=== PATIENT | female | born 1935 | race Caucasian/White ===

== ENCOUNTER 2017-09-02 22:40 | Emergency (ER) | payer MEDICARE ==
[2015-01-18 12:57] VITALS: BMI 30.7
[~2017-09-02 22:40] MED LIST: ALENDRONATE SOD70 MG PO; AMOXICILLIN500 M1 PO; BAYER CHEWABLE81 MG PO; BRILINTA90 MG PO; COUMADIN5 MG PO; EFFIENT10 MG PO; FLOVENT DI50 MCG/DIS INH; FLUTICASONE PRO16 GM NASAL; GLUCOPHAGE500 MG PO; HYDROCODONE-APA1 TAB PO; LASIX40 MG PO; LIPITOR20 MG PO; NITROQUICK0.4 MG SL; PLAQUENIL200 MG PO; PLAVIX75 MG PO; PREDNISONE5 MG PO; PRINZIDE 20-251 TA1 PO; PROTONIX40 MG PO; SINGULAIR10 MG PO; SYNTHROID100 MCG PO; ZYRTEC10 MG PO
[2017-09-02 23:42] LABS: APPEARANCE CLOUDY (CLEAR); COLOR YELLOW (YELLOW); GLUCOSE 50 mg/dL (NEGATIVE); KETONE SMALL mg/dL (NEGATIVE); NITRITE NEGATIVE (NEGATIVE); PROTEIN TRACE mg/dL (NEGATIVE)
[2017-09-02 23:43] LABS: BILIRUBIN NEGATIVE (NEGATIVE); UROBILINOGEN NORMAL (NORMAL)
[2017-09-02 23:46] LABS: BACTERIA MANY /hpf (NONE SEEN); EPITHELIAL CELLS 0-5 /hpf (0-5); RED CELLS - URINE 0-5 /hpf (0-5)
[2017-09-02 23:55] LABS: HEMATOCRIT 41.2 % (36.0-48.0); HEMOGLOBIN 13.4 g/dL (12-16); MCH 30.4 pg (26.0-34.0); MCHC 32.5 g/dL (31.0-37.0); MCV 93.4 fL (80.0-100.0); MEAN PLATELET VOLUME 9.2 fL (7.4-10.4); NEUTROPHILS 84.1 % (40-80); PLATELET COUNT 179 10x3/uL (130-400); RBC 4.41 10x6/uL (4.00-5.40); RDW 13.1 % (11.5-14.5); WBC 12.2 10x3/uL (4.8-10.8)
[2017-09-03 00:03] LABS: ALBUMIN 3.4 g/dL (3.4-5.0); ANION GAP 15.3 mmol/L (8-16); BILIRUBIN - TOTAL 1.2 mg/dL (0.2-1.3); CALCIUM 8.6 mg/dL (8.5-10.1); CARBON DIOXIDE 26.5 mmol/L (21.0-32.0); CREATININE - SERUM 1.1 mg/dL (0.6-1.3); POTASSIUM - SERUM 3.8 mmol/L (3.5-5.1); PROTEIN - SERUM 6.6 g/dL (6.4-8.2)
== END 2017-09-03 00:42 | disposition home or self-care (01) ==
LOC: D.ER 22:40
PROVIDERS: Physician Assistant Medical
DX: N39.0 Urinary tract infection, site not specified (principal); E11.9 Type 2 diabetes mellitus without complications

== ENCOUNTER 2017-09-07 11:01 | Emergency (ER) | payer MEDICARE ==
[2015-01-18 12:57] VITALS: BMI 30.7
[2017-09-07 12:57] LABS: APPEARANCE CLEAR (CLEAR); BILIRUBIN NEGATIVE (NEGATIVE); COLOR YELLOW (YELLOW); GLUCOSE 1000 mg/dL (NEGATIVE); KETONE NEGATIVE (NEGATIVE); NITRITE NEGATIVE (NEGATIVE); PROTEIN NEGATIVE (NEGATIVE); SPECIFIC GRAVITY 1.015 (1.005-1.020); UROBILINOGEN NORMAL (NORMAL)
[2017-09-07 12:58] LABS: BACTERIA NONE SEEN /hpf (NONE SEEN); EPITHELIAL CELLS 0-5 /hpf (0-5); RED CELLS - URINE 0-5 /hpf (0-5); WHITE CELLS - URINE NSEEN /hpf (0-5)
== END 2017-09-07 15:43 | disposition home or self-care (01) ==
LOC: D.ER 11:01
PROVIDERS: Nurse Practitioner Family
DX: M54.5 Low back pain (principal); N39.0 Urinary tract infection, site not specified; K59.00 Constipation, unspecified; K21.9 Gastro-esophageal reflux disease without esophagitis; I10 Essential (primary) hypertension

== ENCOUNTER → 2017-10-04 09:17 | Outpatient (CLI) | payer MEDICARE ==
[2015-01-18 12:57] VITALS: BMI 30.7
== END | disposition home or self-care (01) ==
LOC: D.US 09:17
DX: N18.3 Chronic kidney disease, stage 3 (moderate) (principal)

== ENCOUNTER 2018-03-20 10:18 | Observation (INO) | payer MEDICARE ==
[~2018-03-20] VITALS: Ht 163.8 cm; Wt 75.8 kg
--- NOTE | ~2018-03-20 | DS ---
PATIENT:GWENDOLYN VELAZCO :37 MEDICAL RECORD: [id number] DISCHARGE SUMMARY ADMISSION DATE: 03/20/18 DISCHARGE DATE: 03/21/18 DISCHARGE DIAGNOSES: 1. Lupus. 2. Coronary artery disease, status post coronary bypass grafting. 3. Diabetes mellitus. BRIEF HISTORY AND HOSPITAL COURSE: An 82-year-old female with a history of coronary artery disease, status post intervention, admitted with angina symptomatology, who underwent diagnostic angiography, which showed no evidence of restenosis, no progression of any disease. Discharged home in good condition. DIET: AHA diet. ACTIVITY: As tolerated. TRANSINT:[id number] Voice Confirmation ID: [id number] DOCUMENT ID: [id number] ORLANDO MAYS MD at 1114 CC: [id number] DICTATION DATE: 04/10/18 1349 HOT METAL MIXER OPERATOR HELPER: 04/10/18 1559 DIS IN 03/21/18 [address] [place] [address]
--- NOTE | ~2018-03-20 | HEMODYNAMI ---
PATIENT:GWENDOLYN VELAZCO MEDICAL RECORD: [id number] : 37 LOCATION:[facility] D.2102 ADMISSION DATE: 03/20/18 Generatedon:03/21/201811:12 Patient name: GWENDOLYN VELAZCO Patient #: [id number] SSN: : 1935 Date of study: 03/21/2018 Page: Of Hemodynamic Procedure Report Patient Data Patient Demographics Procedure consent was obtained First Name: GWENDOLYN Gender: Female Last Name: MORA : 1935 Middle Initial: S Age: 82 year(s) Patient #: [id number] Race: Unknown Additional ID: [id number] Contact details [address]: [address] [place] [address] State: [place] City: [place] Zip code: [address] Past Medical History Allergies Allergen Reaction Date Comments Reported Sulfa drugs 12/28/2014 Shellfish 03/21/2018 Sulfa drugs 03/21/2018 Admission Admission Data Admission Date: 03/20/2018 Admission Time: 14:15 Room #: D.2102 Procedure Procedure Types Cath Procedure Diagnostic Procedure [facility] w/Coronaries w/Grafts Sedation Charges Moderate Sedation up to 15 minutes Procedure Description Procedure Date Procedure Date: 03/21/2018 Procedure Start Time: 10:53 Procedure End Time: 11:11 Procedure Staff Name Function Norm Dominique MD Performing Physician Angie Sanchez RT Monitor Moses Bonner RN Nurse Zac Ruiz RT Scrub Procedure Data Cath Procedure Fluoroscopy Diagnostic fluoroscopy Total fluoroscopy Time: 3.5 time: 3.5 min min Diagnostic fluoroscopy Total fluoroscopy dose: 159 dose: 159 mGy mGy Contrast Material Contrast Material Type Amount (ml) Isovue 300 171 Entry Location Entry Primary Successful Side Size Upsize Upsize Entry Closure Succes sful Closure Location (Fr) 1 (Fr) 2 (Fr) Remarks Device Remarks Femoral Right 5 Fr Exoseal artery Estimated blood loss: 5 ml Diagnostic catheters Device Type Used For End Catheter Placement MULTIPACK JL 4.0 5Fr Left Coronary catheter Angiography MULTIPACK 3DRC 5Fr Right Coronary catheter Angiography MULTIPACK 3DRC 5Fr Internal mammary catheter arteriography MULTIPACK Pigtail 5 Fr LV Angiography catheter MULTIPACK Pigtail 5 Fr Aortic Root catheter Angiography Procedure Complications No complications Procedure Medications Medication Administration Route Dosage Oxygen NC 2 l/min Lidocaine 2% added to field 20 Heparin Flush Bag added to field 2 bags (1000units/500ml NS) 0.9% NaCl I.V. 100 ml/hr Versed I.V. 2 mg Fentanyl I.V. 100 mcg Versed I.V. 1 mg Fentanyl I.V. 50 mcg Versed I.V. 1 mg Fentanyl I.V. 50 mcg Versed I.V. 1 mg Fentanyl I.V. 50 mcg Versed I.V. 1 mg Fentanyl I.V. 50 mcg Hemodynamics Rest Heart Rate: 93 (bpm) Pressure Samples Time Site Value (mmHg) Purpose Heart Use Rate(bpm) 11:03 LV 145/-13,14 EDP 87 11:04 AO 149/56(96) Pullback 91 11:04 LV 151/-5,16 Pullback 91 Gradients Valve Time Site 1 Site 2 Mean SEP/DFP Peak To Heart Use (mmHg) (sec/min) Peak Rate (mmHg) (bpm) Aortic 11:04 LV AO 6 26 2 91 151/-5,16 149/56(96) Calculations Valve P-P Mean Valve Index Valve Source Name Gradient Area Flow (cm2) Aortic 2 6 2 6 Snapshots Pre Cath Intra NCS Post Cath Vital Signs Time Heart Resp SPO2 etCO2 NIBP (mmHg) Rhythm Pain Sedation Rate (ipm) (%) (mmHg) Status Level (bpm) 10:40:46 93 19 95 0 132/80(112) NSR 0 (11) 10(A) , No pain 10:45:14 88 16 96 28.4 140/70(103) NSR 0 (11) 10(A) , No pain 10:49:41 88 18 95 26.4 121/58(91) NSR 0 (11) 10(A) , No pain 10:54:01 88 15 93 31.3 106/55(80) NSR 0 (11) 10(A) , No pain 10:58:21 87 16 98 35.6 129/59(88) NSR 0 (11) 9(A) , No pain 11:03:35 87 15 99 35.8 119/60(83) NSR 0 (11) 10(A) , No pain 11:07:57 91 16 100 35.8 132/65(98) NSR 0 (11) 10(A) , No pain Medications Time Medication Route Dose Verified Delivered Reason Notes Effe ctiveness by by 10:38:58 Oxygen NC 2 Norm Buffie used for l/min [facility] director loan 10:39:10 Lidocaine 2% added 20ml Norm Norm for local to vial [facility] anesthetic field MD BIGGS 10:39:15 Heparin Flush added 2 Norm Norm used for Bag to bags [facility] procedure (1000units/500ml field MD BIGGS NS) 10:39:25 0.9% NaCl I.V. 100 Norm Buffie Per ml/hr Catina Bonner RN physician 10:49:35 Versed I.V. 2 mg Norm Buffie for Catina Bonner RN sedation 10:49:41 Fentanyl I.V. 100 Norm Buffie for mcg Catina Bonner RN sedation 10:54:45 Versed I.V. 1 mg Norm Buffie for Catina Bonner RN sedation 10:54:50 Fentanyl I.V. 50 Norm Buffie for [facility] Catina Bonner RN sedation 10:58:40 Versed I.V. 1 mg Norm Buffie for Catina Bonner RN sedation 10:58:43 Fentanyl I.V. 50 Norm Buffie for [facility] Catina Bonner RN sedation 11:01:33 Versed I.V. 1 mg Norm Buffie for Catina Bonner RN sedation 11:01:37 Fentanyl I.V. 50 Norm Buffie for [facility] Catina Bonner RN sedation 11:04:24 Versed I.V. 1 mg Norm Buffie for Catina Bonner RN sedation 11:04:29 Fentanyl I.V. 50 Norm Buffie for [facility] Catina Bonner RN sedation Procedure Log Time Note 10:19:46 Procedure type changed to Cath procedure, Diagnostic procedure, LHC, LHC w/Coronaries w/Grafts, Sedation Charges, Moderate Sedation up to 15 minutes 10:20:03 Zac WADSWORTH(R) (CV) sent for patient. Start room use. 10:20:04 Time tracking: Regular hours (M-F 7:00 - 5:00) 10:20:07 Plan of Care:Hemodynamics will remain stable., Cardiac rhythm will remain stable., Comfort level will be maintained., Respiratory function will remain adequate., Patient/ family verbilizes understanding of procedure., Procedure tolerated without complication., Recovers from procedure without complications.. 10:33:06 Patient received from PCU to CCL 3 Alert and oriented. Tansferred to table in Supine position. 10:33:07 Warm blankets applied, and sherita hugger turned on for patient comfort. 10:33:08 Correct patient and procedure confirmed by team. 10:33:09 Signed procedure consent form obtained from patient. 10:33:09 ECG and BP/O2 sat monitors applied to patient. 10:33:10 Full Disclosure recording started 10:38:58 Oxygen 2 l/min NC was administered by Moses Bonner RN; used for procedure; 10:39:10 Lidocaine 2% 20ml vial added to field was administered by Norm Dominique MD; for local anesthetic; 10:39:15 Heparin Flush Bag (1000units/500ml NS) 2 bags added to field was administered by Norm Dominique MD; used for procedure; 10:39:16 Vital chart was started 10:39:25 0.9% NaCl 100 ml/hr I.V. was administered by Moses Bonner RN; Per physician; 10:41:00 Baseline sample Acquired. 10:41:04 Rhythm: sinus rhythm 10:41:14 H&P Date Dictated: 03/20/2018 Within 30 days and on chart.. 10:41:15 Pre-procedure instructions explained to patient. 10:41:16 Pre-op teaching completed and patient verbalized understanding. 10:41:35 Family in patients room. 10:41:48 Patient NPO since Midnight. 10:42:02 Patient allergic to Shellfish 10:42:06 Patient allergic to Sulfa drugs 10:42:11 Is the patient allergic to Iodine/contrast media? No. 10:42:13 Was the patient premedicated? Yes 10:42:14 Is patient on blood thinner?No 10:43:00 Patient diabetic? Yes. 10:43:06 Snore? No 10:43:07 Sleep apnea? No 10:43:08 Deviated septum? No 10:43:08 Opens mouth fully? Yes 10:43:09 Sticks out tongue? Yes 10:43:14 Airway obstruction? Yes Asthma 10:43:24 Dentures? Yes Partial out 10:43:26 Pre procedure: right dorsailis pedis pulse 1+ Palpable, but thready & weak; easily obliterated 10:43:29 Patient pain scale 0/10 ?. 10:43:39 IV patent on arrival in right forearm with 0.9% NaCl at [facility]. 10:43:42 Lab results completed and on chart. 10:43:44 Right groin area was prepped with chlora-prep and draped in sterile fashion 10:43:45 Alarms reviewed by R. N. 10:43:45 Sharps counted by scrub and verified by R.N. 10:43:49 Use device set Femoral Dx 10:43:51 ACIST Syringe (73449) opened to sterile field. 10:43:52 Bag Decanter (2002S) opened to sterile field. 10:43:52 Medline Cath Pack ([id number]) opened to sterile field. 10:43:53 DIAGNOSTIC WIRE .035 260cm J wire (810565) opened to sterile field. 10:43:54 ACIST Hand Control (92552) opened to sterile field. 10:43:55 ACIST Manifold (85561) opened to sterile field. 10:43:55 DIAGNOSTIC Multipack 5Fr catheter set (US0870) opened to sterile field. 10:43:56 Tegaderm 4 x 4 (1626W) opened to sterile field. 10:43:57 PERCUTANEOUS ENTRY 19GA needle opened to sterile field. 10:43:59 SHEATH Prelude 5Fr 0.035 (NFN-0K-12-035) opened to sterile field. 10:48:05 Final Timeout: patient, procedure, and site verified with staff and physician. All members of the team are in agreement. 10:48:06 Right groin site verified by team. 10:48:09 Physical assessment completed. ASA score P 2 - A patient with mild systemic disease as per Norm Dominique MD. 10:48:12 Sedation plan: IV Moderate Sedation Medication:Versed, Fentanyl 10:49:35 Versed 2 mg I.V. was administered by Moses Bonner RN; for sedation; 10:49:41 Fentanyl 100 mcg I.V. was administered by Moses Bonner RN; for sedation; 10:51:49 Zero performed for pressure channel P1 10:53:37 Procedure started. 10:53:41 Local anesthetic to right femoral artery with Lidocaine 2% by Norm Dominique MD.INITIAL ACCESS ONLY 10:54:45 Versed 1 mg I.V. was administered by Moses Bonner RN; for sedation; 10:54:45 A 5 Fr sheath was inserted into the Right Femoral artery 10:54:50 Fentanyl 50 mcg I.V. was administered by Moses Bonner RN; for sedation; 10:55:10 A MULTIPACK JL 4.0 5Fr catheter was advanced over the wire and used for Left Coronary Angiography. 10:57:13 Catheter removed. 10:57:18 A MULTIPACK 3DRC 5Fr catheter was advanced over the wire and used for Right Coronary Angiography. 10:58:40 Versed 1 mg I.V. was administered by Moses Bonner RN; for sedation; 10:58:43 Fentanyl 50 mcg I.V. was administered by Moses Bonner RN; for sedation; 11:00:12 A MULTIPACK 3DRC 5Fr catheter was advanced over the wire and used for Internal mammary arteriography. to LAD 11:00:46 Catheter removed. 11:01:22 A MULTIPACK Pigtail 5 Fr catheter was advanced over the wire and used for LV Angiography. 11:01:33 Versed 1 mg I.V. was administered by Moses Bonner RN; for sedation; 11:01:37 Fentanyl 50 mcg I.V. was administered by Moses Bonner RN; for sedation; 11:03:10 LV gram done using MELCHOR 11:03:12 LV hemodynamics recorded. 11:03:14 Injector settings: Ml/sec: 10, Volume: 20, 11:04:16 A MULTIPACK Pigtail 5 Fr catheter was advanced over the wire and used for Aortic Root Angiography. 11:04:24 Versed 1 mg I.V. was administered by Moses Bonner RN; for sedation; 11:04:29 Fentanyl 50 mcg I.V. was administered by Moses Bonner RN; for sedation; 11:04:58 Catheter removed. 11:05:00 EXOSEAL 5Fr (EX500) opened to sterile field. 11:05:12 Sheath removed intact; hemostasis achieved with Exoseal to the Right Femoral artery. 11:05:18 Procedure ended.(Physican Out) 11:05:28 Fluoroscopy time 03.50 minutes. 11:05:33 Fluoroscopy dose: 159 mGy 11:05:33 Flurop Dose total: 159 11:05:37 Contrast amount:Isovue 300 171ml. 11:05:38 Sharps counted by scrub and verified by R.N. 11:05:42 Insertion/operative site no bleeding no hematoma. 11:05:52 Post-op/insertion site Right Femoral artery dressed using a 4 x 4 and Tegaderm. 11:05:55 Post right femoral artery:stable, clean and dry 11:05:56 Post Procedure Pulses reassessed and unchanged 11:06:04 Post-procedure physical assessment completed. ASA score P 2 - A patient with mild systemic disease as per Norm Dominique MD. 11:06:07 Post procedure rhythm: unchanged. 11:06:09 Estimated blood loss: 5 ml 11:06:10 Post procedure instruction explained to patient.Patient verbalizes understanding. 11:06:10 Patient needs reinforcement of post procedure teaching. 11:06:33 Procedure Complication : No complications 11:06:36 See physician's report for complete and final results. 11:08:08 Procedure and supply charges have been captured, reviewed, submitted and are correct. 11:11:01 Vital chart was stopped 11:11:04 Report given to PCU. 11:11:08 Patient transfered to PCU with Bed. 11:11:14 Procedure ended. 11:11:14 Full Disclosure recording stopped 11:11:25 End room use (Document Last) Device Usage Item Name Manufacture Quantity Catalog Number Hospital Part Current M inimal Lot# / Charge Number Stock Stock Serial# Code ACIST Syringe Acist 1 46915 952957 431258 110024 2 0 (35253) [employer] Bag Decanter Microtek 1 848256 20782 528911 5 () Medical Inc. Medline Cath Cardinal 1 [id number] 551146 89176 953457 5 Fat [employer] [facility] ([id number]) DIAGNOSTIC WIRE [facility] Ricardo 1 717178 073771 687089 245312 3 0 .035 260cm J wire (133018) ACIST Hand Acist 1 57060 569420 967662 231944 5 Control (36866) [employer] Inc ACIST Manifold Acist 1 17974 522895 202692 543312 5 (40887) [employer] Inc DIAGNOSTIC Cardinal 1 [id number] 430255 20826 771161 3 0 Multipack 5Fr Health catheter set (DD7580) Tegaderm 4 x 4 3M 1 1626W 132328 995189 074269 5 (1626W) PERCUTANEOUS Cook Medical 1 [id number] 135270 249770 5 ENTRY 19GA needle SHEATH Prelude Merit 1 [id number] 721163 792917 264765 5 5Fr 0.035 Medical ([id number]) MULTIPACK JL Cardinal 1 930972 5 4.0 5Fr Health catheter MULTIPACK 3DRC Cardinal 1 048037 5 5Fr catheter Health MULTIPACK Cardinal 1 107689 5 Pigtail 5 Fr Health catheter EXOSEAL 5Fr Cardinal 1 EX500 156884 893400 185164 1 0 (EX500) Health Signature Audit [place] Stage Time Signature Unsigned Intra-Procedure 03/21/2018 Angie 11:12:01 AM Counts RT(R) Signatures Monitor : Angie Signature : Counts RT Date : Time : [address] [facility] [place] [place] [address]
--- NOTE | ~2018-03-20 | HP ---
PATIENT: GWENDOLYN WOOTEN MEDICAL RECORD: [id number] ACCOUNT: [id number] LOCATION:[address] : 36 ADMISSION DATE: 03/20/18 HISTORY AND PHYSICAL EXAMINATION HISTORY OF PRESENT ILLNESS: Gwendolyn Wooten is an 82-year-old female with a known history of coronary artery disease, status post coronary artery bypass grafting, most recent intervention approximately 2 years ago, but did fairly well. Progressive angina over the past month. Actually was scheduled for Cardiolite stress testing today. Had onset of rest symptoms with dyspnea yesterday, classic angina. Admitted for evaluation. PAST MEDICAL HISTORY: 1. Coronary artery disease. 2. Lupus. 3. Hypertension. 4. Dyslipidemia. 5. Hypothyroidism, on replacement. MEDICATIONS: Include prednisone 5 mg p.o. daily, Glucophage 500 b.i.d., Synthroid 100 mcg every day, Lasix 40 p.r.n., lisinopril 20 every day, Imdur 30 every day, atorvastatin 20 every day, Plaquenil 200 b.i.d., Zyrtec 10 every day. ALLERGIES: SULFA, SEAFOOD. SOCIAL HISTORY: Nonsmoker and nondrinker. She is able to care of her ADLs. REVIEW OF SYSTEMS: The patient reports easy bruising but reports no swollen glands. The patient reports no fever, no night sweats, no significant weight gain, no significant weight loss. No significant exercise tolerance. The patient reports no dry eyes, no irritation, no vision change. Patient reports no difficulty hearing and no ear pain. Patient reports no frequent nose bleeds or nose and sinus problems. Patient reports on arm pain on exertion. No shortness of breath while lying down. No history of heart murmur. Patient reports no cough, no wheezing or coughing up blood. Patient reports no abdominal pain, no vomiting. Normal appetite. No diarrhea and not vomiting blood. No nausea and no constipation. Patient reports no incontinence. No difficulty urinating. No hematuria. No increased frequency. Patient reports no muscle aches. No weakness, no arthralgias, no back pain. No swelling of the extremities. Patient reports no abnormal mole, no jaundice, no rashes. Reports no loss of consciousness. No weakness and no numbness. No seizures, dizziness, or headaches. The patient reports no depression, no sleep disturbance, feeling safe in a relationship and no alcohol abuse. Patient reports on fatigue. Reports no runny nose or sinus pressure. No itching, no hives, and no frequent sneezing. PHYSICAL EXAMINATION: GENERAL: Pleasant female, in no acute distress. VITAL SIGNS: Blood pressure 117/55, pulse 70 and regular. HEENT: Normocephalic, atraumatic. NECK: No JVD or bruit. HEART: Regular. LUNGS: Good air excursion. ABDOMEN: Soft, nontender. EXTREMITIES: Pulse 2+ with no edema. HISTORY AND PHYSICAL [id number] GWENDOLYN WOOTEN IMPRESSION: Acute coronary syndrome. PLAN: Plan for angiography, intervention based on above. TRANSINT:[id number] Voice Confirmation ID: [id number] DOCUMENT ID: [id number] ORLANDO MAYS MD at 1113 CC: [id number] DICTATION DATE: 03/21/18730 MARKETING RESEARCH COORDINATOR: 03/21/18 0820 ADM IN [address] [address] [place] [address]
--- NOTE | ~2018-03-20 | OP ---
PATIENT NAME: GWENDOLYN VELAZCO MEDICAL RECORD: [id number] :37 LOCATION:[address] D.2102 ADMISSION DATE:03/20/18 SURGEON: ORLANDO MAYS MD DATE OF OPERATION: 03/21/2018 PROCEDURE: Left heart catheterization, selective coronary angiography, right femoral approach. CATHETERS: A 5-Bulgarian sheath, 5/4 left and right Na, 5/4 pig. The procedure was well tolerated. The patient returned to milian, sheath removed. ExoSeal device was placed in the RV. FINDINGS: Left ventriculography in the 30-degree MELCHOR view: Normal wall motion, normal systolic function. AORTIC ROOT: Aortic root injection was performed to check for dissection bypass grafts that showed no patent saphenous graft, normal size aorta. CORONARY ANATOMY: LEFT MAIN: The left main is free of disease. LAD: Fills for a short period of time and slightly occluded. CIRCUMFLEX: Left dominant system free of disease. RIGHT CORONARY ARTERY: Slightly occluded, fills by left to right collaterals. BOTELLO to LAD is widely patent throughout its course and supplies left to right collaterals to the right coronary. IMPRESSION: Patent BOTELLO to LAD and no other flow obstructive stenosis. Normal LV function. TRANSINT:[id number] Voice Confirmation ID: [id number] DOCUMENT ID: [id number] ORLANDO MAYS MD at 0826 CC: [id number] DICTATION DATE: 03/21/18 1112 HELICOPTER CREW CHIEF: 03/21/18 1227 DIS IN 03/21/18 [address] [place] [address]
[2018-03-20 11:06] LABS: APPEARANCE CLEAR (CLEAR); BILIRUBIN NEGATIVE (NEGATIVE); COLOR YELLOW (YELLOW); GLUCOSE NEGATIVE (NEGATIVE); KETONE NEGATIVE (NEGATIVE); NITRITE NEGATIVE (NEGATIVE); PROTEIN NEGATIVE (NEGATIVE); SPECIFIC GRAVITY 1.015 (1.005-1.020); UROBILINOGEN NORMAL (NORMAL)
[2018-03-20 11:09] LABS: BASOPHILS 0.2 % (0-2); EOSINOPHILS 0.5 % (0-7); HEMATOCRIT 43.2 % (36.0-48.0); HEMOGLOBIN 14.1 g/dL (12-16); IMMATURE GRANULOCYTES 0.5 % (0-5); LYMPHOCYTES 9.2 % (15-50); MCH 30.5 pg (26.0-34.0); MCHC 32.6 g/dL (31.0-37.0); MCV 93.5 fL (80.0-100.0); MEAN PLATELET VOLUME 10.2 fL (7.4-10.4); MONOCYTES 8.4 % (2-11); NEUTROPHILS 81.2 % (40-80); PLATELET COUNT 196 10x3/uL (130-400); RBC 4.62 10x6/uL (4.00-5.40); RDW 14.1 % (11.5-14.5); WBC 9.7 10x3/uL (4.8-10.8)
[2018-03-20 11:36] LABS: ALBUMIN 3.4 g/dL (3.4-5.0); ALKALINE PHOSPHATASE 89 U/L (46-116); ALT (SGPT) 23 U/L (10-68); BILIRUBIN - TOTAL 0.51 mg/dL (0.2-1.3); CALC OSMOLALITY 284 mosm/kg (275-300); CARBON DIOXIDE 26.1 mmol/L (21.0-32.0); CHLORIDE - SERUM 105 mmol/L (98-107); CREATININE - SERUM 0.9 mg/dL (0.6-1.3); GLUCOSE 141 mg/dL (74-106); POTASSIUM - SERUM 4.4 mmol/L (3.5-5.1); PROTEIN - SERUM 6.3 g/dL (6.4-8.2); SODIUM 140 mmol/L (136-145); UREA NITROGEN 23 mg/dL (7-18); eGFR NON AFRICAN AMERICAN 64 mL/min (90-120)
[2018-03-20 11:39] LABS: CHOL - HDL RATIO 2.3 ratio (2.3-4.1); CHOLESTEROL, TOTAL 117 mg/dL (0-200); CKMB 0.6 U/L (0.0-3.6); CREATINE KINASE 76 UL (21-215); HDL CHOLESTEROL 51 mg/dL (32-96); LDL CHOLESTEROL 50 mg/dL (0-100); LIPASE 260 U/L (73-393); MAGNESIUM - SERUM 1.3 mg/dL (1.8-2.4); PRO BNP 786 pg/mL (0-450); THYROID STIMULATING HORMONE 1.06 uIU/mL (0.36-3.74); TRIGLYCERIDE 82 mg/dL (30-200); TROPONIN-I < 0.017 ng/mL (0.000-0.060)
[2018-03-20 11:47] LABS: INR 1.08 (0.85-1.17); PROTIME 13.6 SECONDS (11.6-15.0)
[2018-03-20 11:49] LABS: D-DIMER-QUANTITATIVE 0.86 ug/mLFEU (0.20-0.54)
[2018-03-20 15:15] LABS: CKMB 1.1 U/L (0.0-3.6); CREATINE KINASE 67 UL (21-215); TROPONIN-I 0.021 ng/mL (0.000-0.060)
[2018-03-20] MEDS ORDERED: LASIX40 MG (17:44)
[2018-03-20] MEDS ORDERED: K-DUR20 MEQ PO (17:46)
[2018-03-20] MEDS ORDERED: ZESTRIL20 MG PO (17:46)
[2018-03-20] MEDS ORDERED: FLORAJEN3 CAPS460 MG PO (17:46)
[2018-03-20] MEDS ORDERED: ISOSORBIDE MONO30 M1 PO (17:47)
[2018-03-20] MEDS ORDERED: CALCIUM 600+D T1 TA1 PO (17:48)
[2018-03-20] MEDS ORDERED: VITAMIN E600 UNIT PO (17:48)
[2018-03-20] MEDS ORDERED: AZELASTINE137 MCG/0. NASAL (17:49)
[2018-03-20] MEDS ORDERED: MELATONIN 3 MG1 TAB PO (17:49)
[2018-03-20 18:04] VITALS: BP 140/60; BMI 28.6
[2018-03-20 20:38] VITALS: BP 88/54
[2018-03-20 22:19] LABS: CKMB 0.9 U/L (0.0-3.6); CREATINE KINASE 67 UL (21-215); TROPONIN-I 0.039 ng/mL (0.000-0.060)
[2018-03-21 00:05] VITALS: BP 111/50
[2018-03-21 02:53] LABS: BASOPHILS 0.3 % (0-2); EOSINOPHILS 1.4 % (0-7); HEMATOCRIT 43.8 % (36.0-48.0); HEMOGLOBIN 14.3 g/dL (12-16); IMMATURE GRANULOCYTES 0.3 % (0-5); LYMPHOCYTES 23.3 % (15-50); MCH 30.4 pg (26.0-34.0); MCHC 32.6 g/dL (31.0-37.0); MEAN PLATELET VOLUME 10.3 fL (7.4-10.4); MONOCYTES 10.4 % (2-11); NEUTROPHILS 64.3 % (40-80); PLATELET COUNT 207 10x3/uL (130-400); RBC 4.71 10x6/uL (4.00-5.40); RDW 14.2 % (11.5-14.5); WBC 9.4 10x3/uL (4.8-10.8)
[2018-03-21 03:17] LABS: ALBUMIN 3.2 g/dL (3.4-5.0); ALKALINE PHOSPHATASE 83 U/L (46-116); ALT (SGPT) 23 U/L (10-68); BILIRUBIN - TOTAL 0.51 mg/dL (0.2-1.3); CALC OSMOLALITY 283 mosm/kg (275-300); CALCIUM 8.8 mg/dL (8.5-10.1); CARBON DIOXIDE 26.9 mmol/L (21.0-32.0); CHLORIDE - SERUM 105 mmol/L (98-107); CKMB 0.7 U/L (0.0-3.6); CREATINE KINASE 64 UL (21-215); GLUCOSE 115 mg/dL (74-106); PROTEIN - SERUM 6.6 g/dL (6.4-8.2); SODIUM 141 mmol/L (136-145); TROPONIN-I 0.033 ng/mL (0.000-0.060); UREA NITROGEN 18 mg/dL (7-18); eGFR NON AFRICAN AMERICAN 56 mL/min (90-120)
[2018-03-21 04:39] VITALS: BP 117/55
[2018-03-21 08:02] VITALS: BP 137/68
[2018-03-21 08:02] LABS: ANION GAP 14.1 mmol/L (8-16); CALCIUM 9.1 mg/dL (8.5-10.1); CREATININE - SERUM 1.1 mg/dL (0.6-1.3); POTASSIUM - SERUM 4.1 mmol/L (3.5-5.1)
[2018-03-21 10:24] VITALS: Ht 163.8 cm; Wt 75.8 kg
[2018-03-21 15:19] VITALS: BP 117/63
== END 2018-03-21 16:39 | disposition home or self-care (01) ==
LOC: D.ER 10:18 → OBSVTIME 14:15 → D.EDHOLD 14:15 → D.M2 14:15
PROVIDERS: Family Medicine; Internal Medicine Interventional Cardiology; Nurse Practitioner Family
DX: I25.10 Atherosclerotic heart disease of native coronary artery without angina pectoris (principal); Z95.1 Presence of aortocoronary bypass graft; I10 Essential (primary) hypertension; M32.9 Systemic lupus erythematosus, unspecified; E78.5 Hyperlipidemia, unspecified; E03.9 Hypothyroidism, unspecified

== ENCOUNTER → 2018-03-26 10:06 | Outpatient (CLI) | payer MEDICARE ==
[2018-03-21 10:24] VITALS: BMI 28.2
[~2018-03-26 10:06] MED LIST changes: +AZELASTINE137 MCG/0. NASAL; +CALCIUM 600+D T1 TA1 PO; +FLORAJEN3 CAPS460 MG PO; +ISOSORBIDE MONO30 M1 PO; +K-DUR20 MEQ PO; +LASIX40 MG; +MELATONIN 3 MG1 TAB PO; +VITAMIN E600 UNIT PO; +ZESTRIL20 MG PO
== END | disposition home or self-care (01) ==
LOC: D.CT 03-14 14:30
DX: M54.16 Radiculopathy, lumbar region (principal)

== ENCOUNTER → 2018-07-15 12:48 | Outpatient (CLI) | payer MEDICARE ==
[2018-03-21 10:24] VITALS: BMI 28.2
== END | disposition home or self-care (01) ==
LOC: D.LABREF 12:48
DX: M12.88 Other specific arthropathies, not elsewhere classified, other specified site (principal); Z11.8 Encounter for screening for other infectious and parasitic diseases

== ENCOUNTER 2018-08-04 08:00 | Inpatient (IN) | payer MEDICARE ==
[2018-07-31 09:41] LABS: HEMATOCRIT 47.9 % (36.0-48.0); HEMOGLOBIN 15.7 g/dL (12-16); MCH 31.5 pg (26.0-34.0); MCHC 32.8 g/dL (31.0-37.0); MEAN PLATELET VOLUME 10.2 fL (7.4-10.4); RBC 4.99 10x6/uL (4.00-5.40); WBC 10.6 10x3/uL (4.8-10.8)
[2018-07-31 09:51] LABS: ANION GAP 12.8 mmol/L (8-16); CALCIUM 9.2 mg/dL (8.5-10.1); CREATININE - SERUM 1.1 mg/dL (0.6-1.3); POTASSIUM - SERUM 3.8 mmol/L (3.5-5.1)
[2018-07-31 10:03] LABS: APTT 25.8 SECONDS (22.8-39.4); PROTIME 12.8 SECONDS (11.6-15.0)
[~2018-08-04] VITALS: Ht 162.6 cm; Wt 81.8 kg
--- NOTE | ~2018-08-04 | MORECARE ---
CASE MANAGEMENT DISCHARGE SUMMARY PATIENT: GWENDOLYN VELAZCO UNIT: [id number] ADM DATE: 08/04/18 AGE: 83 : 36 SEX: F ROOM/BED: D.2229 AUTHOR: ANA MARIA MESA PHYSICIAN: REFERRING PHYSICIAN: TAM BARKER MD DATE OF SERVICE: 08/05/18 Discharge Plan Patient Name: GWENDOLYN VELAZCO Facility: [facility]:[place] : 1935 Planned Disposition: Home with Home Health Anticipated Discharge Date: 08/05/18 Discharge Date: Expected LOS: 1 Initial Reviewer: [email or web address] Initial Review Date: 08/04/2018 Generated: 08/05/18 10:31 am Comments DCP- Discharge Planning Updated by [email or web address]: Emma Alberto on 08/05/18 8:[address] Patient Name: GWENDOLYN VELAZCO Admission Status: Elective Accout number: [id number] Admission Date: 08-04-2018 : 1935 Admission Diagnosis: Attending: TAM BARKER Current LOS: 1 Anticipated DC Date: 08-05-2018 Planned Disposition: Home with Home Health Primary Insurance: [facility] [employer] Discharge Planning Comments: CM MET WITH PATIENT ABOUT DC PLANNING NEEDS. PATIENT PLANS TO DC TO HOME WITH AND USE HH. CHOICE LETTER SIGNED FOR [facility]. DOCUMENTS FAXED TO THEM AT [phone] FOR REFERRAL, WAITING TO HEAR BACK FROM THEM. CM WILL FOLLOW AND ASSIST NEEDED WITH DC PLANNING NEEDS. STATES WILL PICK HER UP AT TIME OF DC. Ship'S Electronic Warfare Officer: Emma Alberto DCPIA - Discharge Planning Initial Assessment Updated by [email or web address]: Emma Alberto on 08/05/18 9:21 am * Is the patient Alert and Oriented? Yes * PCP KAREEM * [facility] * Preadmission Environment Home with Family * ADLs Partial Dependent * Partial ADLs (Assistance needed) Ambulation * Equipment Nebulizer Rolling Walker * List name and contact numbers for known caregivers / representatives who currently or will assist patient after discharge: KRUPA BLAKE, * Verbal permission to speak to the caregivers and representatives has been obtained from the patient. Yes * Community resources currently utilized None * Additional services required to return to the preadmission environment? Yes * Can the patient safely return to the preadmission environment? Yes * Has this patient been hospitalized within the prior 30 days at any hospital? No Coverage Notice Reviewer: [email or web address] Ute Alberto Notice Issued Date-Time: 08/05/2018 9:17 Notice Type: Patient Choice Letter Notice Delivered To: Patient Relationship to Patient: Self Account Service Associate Name: Delivery Method: HAND - Hand Delivered Ava Days: Prior Verbal Notification: Recipient Understood Notice: Yes Recipient Signature: Yes Med Rec Note Co-signed by Attending: Coverage Notice Comment: PT CHOSE [facility] PHONE [phone] FAX [phone] Last DP export: 08/05/18 8:23 Patient Name: GWENDOLYN VELAZCO Page [phone] at 0931 All edits/amendments must be made on the electronic document DICTATION DATE: 08/05/18929 LABORER WOOD PRESERVING PLANT: RIOS 08/05/18929 RPT#: [id number] DC DATE: STATUS: ADM IN [facility] [address] [place] [address] END OF REPORT
--- NOTE | ~2018-08-04 | OP ---
PATIENT NAME: GWENDOLYN VELAZCO MEDICAL RECORD: [id number] :37 LOCATION:D.MS [id number] ADMISSION DATE:08/04/18 SURGEON: TAM BARKER MD DATE OF OPERATION: 08/04/2018 PREOPERATIVE DIAGNOSIS: Chronic rotator cuff arthropathy of the right shoulder. POSTOPERATIVE DIAGNOSIS: Chronic rotator cuff arthropathy of the right shoulder. PROCEDURE: Right reverse total shoulder arthroplasty. SURGEON: Tam Barker MD ANESTHESIA: General. INTRAOPERATIVE COMPLICATIONS: None. SUMMARY OF PATHOLOGIC FINDINGS: Very extensive rotator cuff arthropathy, consistent with preoperative radiographs and imaging. IMPLANTS USED: Arthrex Univers Revers total shoulder arthroplasty, small Arthrex glenoid baseplate, a size #36 Arthrex Univers glenosphere, +2 cup, +6 spacer, and a size #10 stem. ESTIMATED BLOOD LOSS: 200 cc. OPERATIVE SUMMARY IN DETAIL: After obtaining the appropriate preoperative orthopedic surgery consent as well as anesthetic consultation, evaluation, and clearance, the patient was brought to the operating room and placed on the operating table in the supine position. After adequate general laryngeal mask airway was administered, the patient was placed in the beachchair position. All pressure points were well padded to include down leg peroneal pad as well as axillary roll. The patient was held firmly to the operating table using the vacuum pack suction system. Right upper extremity and shoulder were then prepped and draped in routine sterile fashion. The arm was held in the Arthrex Trimano arm holding system. Deltopectoral incision was taken down. The cephalic vein was identified and protected through the entire case. Clavipectoral fascia was incised. Conjoined tendon was gently retracted medially. Anterior fibers of the subscapularis were taken down. The humerus was then very easily dislocated into the incision for full visualization. Proximal humeral cut was made using the humeral cutting guide. Sequential reaming and broaching were done for the proximal humeral stem along with the metaphyseal component. Cut protection guide was put into place. Glenoid was then approached. Circumferential labrectomy was followed by center guide pin placement followed by the appropriate reaming for an Arthrex universal small baseplate. This was put into place with good central fit followed by compression screw of the central screw. Superior and inferior screws were put in locking fashion with good fixation achieved. Next, the glenosphere was then tamped into place on the Pandya taper, checked, and found to have good feel. Copious irrigation was then followed by trial. After trial was undertaken, the final implants corresponding to the above dictated components were put in place and reduced on the field for good overall tensioning across the reverse total shoulder arthroplasty. Wound was copiously OPERATIVE REPORT [id number] GWENDOLYN VELAZCO irrigated. Subscapularis was reapproximated to the lesser tuberosity in a transosseous fashion with #2 Ethibond. This was then followed by #1 Vicryl, 2-0 Vicryl, and skin stepan for final closure. Sterile dressings were applied. Sling was applied. The patient was awakened and taken to recovery room in stable condition. All final needle and sponge counts were correct. TRANSINT:[id number] Voice Confirmation ID: [id number] DOCUMENT ID: [id number] LUCERO BIGGS, TAM JACOBSEN at 2017 CC: [id number] DICTATION DATE: 08/04/18 1211 FLIGHT OPERATIONS ENGINEER: 08/04/18 1549 ADM IN [facility] [address] [id number]
--- NOTE | ~2018-08-04 | MORECARE ---
CASE MANAGEMENT DISCHARGE SUMMARY PATIENT: GWENDOLYN VELAZCO UNIT: [id number] ADM DATE: 08/04/18 AGE: 83 : 36 SEX: F ROOM/BED: D.2229 AUTHOR: ANA MARIA MESA PHYSICIAN: REFERRING PHYSICIAN: TAM BARKER MD DATE OF SERVICE: 08/05/18 Discharge Plan Patient Name: GWENDOLYN VELAZCO Facility: [facility]:[place] : 1935 Planned Disposition: Home with Home Health Anticipated Discharge Date: 08/05/18 Discharge Date: Expected LOS: 1 Initial Reviewer: [email or web address] Initial Review Date: 08/04/2018 Generated: 08/05/18 2:13 pm Comments DCP- Discharge Planning Updated by [email or web address]: Emma Alberto on 08/05/18 12:[address] Patient Name: GWENDOLYN VELAZCO Encounter No: [id number] : 1935 Primary Insurance: [employer]IONS Anticipated DC Date: 08-05-2018 Planned Disposition: Home with Home Health External Planned Provider: : DCP follow-up note: Patient and family in agreement with discharge plan. No changes to plan. Case management will follow and assist as needed. [facility] will see patient this . Emma Alberto DCP- Discharge Planning Updated by [email or web address]: Emma Alberto on 08/05/18 8:[address] Patient Name: GWENDOLYN VELAZCO Admission Status: Elective Accout number: [id number] Admission Date: 08-04-2018 : 1935 Admission Diagnosis: Attending: TAM BARKER Current LOS: 1 Anticipated DC Date: 08-05-2018 Planned Disposition: Home with Home Health Primary Insurance: [facility] MEDICARE SOLUTIONS Discharge Planning Comments: CM MET WITH PATIENT ABOUT DC PLANNING NEEDS. PATIENT PLANS TO DC TO HOME WITH AND USE HH. CHOICE LETTER SIGNED FOR [facility]. DOCUMENTS FAXED TO THEM AT [phone] FOR REFERRAL, WAITING TO HEAR BACK FROM THEM. CM WILL FOLLOW AND ASSIST NEEDED WITH DC PLANNING NEEDS. STATES WILL PICK HER UP AT TIME OF DC. Special Event Assistant: Emma Alberto DCPIA - Discharge Planning Initial Assessment Updated by [email or web address]: Emma Alberto on 08/05/18 9:21 am * Is the patient Alert and Oriented? Yes * PCP KAREEM * [facility] * Preadmission Environment Home with Family * ADLs Partial Dependent * Partial ADLs (Assistance needed) Ambulation * Equipment Nebulizer Rolling Walker * List name and contact numbers for known caregivers / representatives who currently or will assist patient after discharge: KRUPA BLAKE, * Verbal permission to speak to the caregivers and representatives has been obtained from the patient. Yes * Community resources currently utilized None * Additional services required to return to the preadmission environment? Yes * Can the patient safely return to the preadmission environment? Yes * Has this patient been hospitalized within the prior 30 days at any hospital? No Coverage Notice Reviewer: [email or web address] - Emmasharon Alberto Notice Issued Date-Time: 08/05/2018 9:17 Notice Type: Patient Choice Letter Notice Delivered To: Patient Relationship to Patient: Self Power Plant Supervisor Name: Delivery Method: HAND - Hand Delivered Ava Days: Prior Verbal Notification: Recipient Understood Notice: Yes Recipient Signature: Yes Med Rec Note Co-signed by Attending: Coverage Notice Comment: PT CHOSE [facility] AT HOME PHONE [phone] FAX [phone] Last DP export: 08/05/18 8:31 Patient Name: GWENDOLYN VELAZCO Page [phone] at 1314 All edits/amendments must be made on the electronic document DICTATION DATE: 08/05/18 1313 GEAR CHANGER: RIOS 08/05/18 1313 RPT#: [id number] DC DATE: STATUS: ADM IN [facility] [address] [place] [address] END OF REPORT
--- NOTE | ~2018-08-04 | MORECARE ---
CASE MANAGEMENT DISCHARGE SUMMARY PATIENT: GWENDOLYN VELAZCO UNIT: [id number] ADM DATE: 08/04/18 AGE: 83 : 36 SEX: F ROOM/BED: D.2229 AUTHOR: ANA MARIA MESA PHYSICIAN: REFERRING PHYSICIAN: TAM BARKER MD DATE OF SERVICE: 08/05/18 Discharge Plan Patient Name: GWENDOLYN VELAZCO Facility: [facility]:[place] : 1935 Planned Disposition: Home with Home Health Anticipated Discharge Date: 08/05/18 Discharge Date: Expected LOS: 1 Initial Reviewer: [email or web address] Initial Review Date: 08/04/2018 Generated: 08/05/18 10:23 am DCPIA - Discharge Planning Initial Assessment Updated by [id number]: Emma Ablerto on 08/05/18 9:21 am * Is the patient Alert and Oriented? Yes * PCP KAREEM * [facility] * Preadmission Environment Home with Family * ADLs Partial Dependent * Partial ADLs (Assistance needed) Ambulation * Equipment Nebulizer Rolling Walker * List name and contact numbers for known caregivers / representatives who currently or will assist patient after discharge: LOU, , * Verbal permission to speak to the caregivers and representatives has been obtained from the patient. Yes * Community resources currently utilized None * Additional services required to return to the preadmission environment? Yes * Can the patient safely return to the preadmission environment? Yes * Has this patient been hospitalized within the prior 30 days at any hospital? No External Providers External Provider: [facility] Next Contact Date: Service Request Date: Service Type: Resolution: Reviewer: Comments: Coverage Notice Reviewer: [email or web address] Ute Alberto Notice Issued Date-Time: 08/05/2018 9:17 Notice Type: Patient Choice Letter Notice Delivered To: Patient Relationship to Patient: Self Carpenter Supervisor Name: Delivery Method: HAND - Hand Delivered Ava Days: Prior Verbal Notification: Recipient Understood Notice: Yes Recipient Signature: Yes Med Rec Note Co-signed by Attending: Coverage Notice Comment: PT CHOSE [facility] AT HOME PHONE [phone] FAX [phone] Patient Name: GWENDOLYN VELAZCO Page [phone] at 0923 All edits/amendments must be made on the electronic document DICTATION DATE: 08/05/18921 ACCOUNTANT CONTROLLER: RIOS 08/05/18921 RPT#: [id number] DC DATE: STATUS: ADM IN [facility] [address] [place] [address] END OF REPORT
--- NOTE | ~2018-08-04 | MORECARE ---
CASE MANAGEMENT DISCHARGE SUMMARY PATIENT: GWENDOLYN VELAZCO UNIT: [id number] ADM DATE: 08/04/18 AGE: 83 : 36 SEX: F ROOM/BED: D.2229 AUTHOR: ANA MARIA MESA PHYSICIAN: REFERRING PHYSICIAN: TAM BARKER MD DATE OF SERVICE: 08/11/18 Discharge Plan Patient Name: GWENDOLYN VELAZCO Facility: [facility]:[place] : 1935 Planned Disposition: Home with Home Health Anticipated Discharge Date: 08/05/18 Discharge Date: 08/05/2018 Expected LOS: 1 Initial Reviewer: [email or web address] Initial Review Date: 08/04/2018 Generated: 08/11/18 9:23 am Comments DCP- Discharge Planning Updated by [email or web address]: Emma Alberto on 08/05/18 12:[address] Patient Name: GWENDOLYN VELAZCO Encounter No: [id number] : 1935 Primary Insurance: [employer]IONS Anticipated DC Date: 08-05-2018 Planned Disposition: Home with Home Health External Planned Provider: : DCP follow-up note: Patient and family in agreement with discharge plan. No changes to plan. Case management will follow and assist as needed. [facility] will see patient this . Emma Alberto DCP- Discharge Planning Updated by [email or web address]: Emma Alberto on 08/05/18 8:[address] Patient Name: GWENDOLYN VELAZCO Admission Status: Elective Accout number: [id number] Admission Date: 08-04-2018 : 1935 Admission Diagnosis: Attending: TAM BARKER Current LOS: 1 Anticipated DC Date: 08-05-2018 Planned Disposition: Home with Home Health Primary Insurance: [facility] MEDICARE SOLUTIONS Discharge Planning Comments: CM MET WITH PATIENT ABOUT DC PLANNING NEEDS. PATIENT PLANS TO DC TO HOME WITH AND USE HH. CHOICE LETTER SIGNED FOR [facility] AT HOME. DOCUMENTS FAXED TO THEM AT [phone] FOR REFERRAL, WAITING TO HEAR BACK FROM THEM. CM WILL FOLLOW AND ASSIST NEEDED WITH DC PLANNING NEEDS. STATES WILL PICK HER UP AT TIME OF DC. Regulatory Affairs Intern: Emma Alberto DCPIA - Discharge Planning Initial Assessment Updated by [email or web address]: Emmasharon Alberto on 08/05/18 9:21 am * Is the patient Alert and Oriented? Yes * PCP KAREEM * [facility] * Preadmission Environment Home with Family * ADLs Partial Dependent * Partial ADLs (Assistance needed) Ambulation * Equipment Nebulizer Rolling Walker * List name and contact numbers for known caregivers / representatives who currently or will assist patient after discharge: KRUPA BLAKE, * Verbal permission to speak to the caregivers and representatives has been obtained from the patient. Yes * Community resources currently utilized None * Additional services required to return to the preadmission environment? Yes * Can the patient safely return to the preadmission environment? Yes * Has this patient been hospitalized within the prior 30 days at any hospital? No Coverage Notice Reviewer: [id number] - Emmasharon Alberto Notice Issued Date-Time: 08/05/2018 9:17 Notice Type: Patient Choice Letter Notice Delivered To: Patient Relationship to Patient: Self Qa Engineer Name: Delivery Method: HAND - Hand Delivered Ava Days: Prior Verbal Notification: Recipient Understood Notice: Yes Recipient Signature: Yes Med Rec Note Co-signed by Attending: Coverage Notice Comment: PT CHOSE [facility] AT HOME PHONE [phone] FAX [phone] Last DP export: 08/05/18 12:14 Patient Name: GWENDOLYN VELAZCO Page [phone] at 0823 All edits/amendments must be made on the electronic document DICTATION DATE: 08/11/18822 LACQUER SHADER: RIOS 08/11/18822 RPT#: [id number] DC DATE:08/05/18 STATUS: DIS IN [facility] [address] [place] [address] END OF REPORT
[~2018-08-04 08:00] MED LIST changes: +HYDROCODON-ACE1 EAC7 PO; -LASIX40 MG; +PLAQUENIL 200200 MG PO; -PLAQUENIL200 MG PO; +TOPROL XL50 MG PO; +VITAMIN D31000 UNI2 PO
[2018-08-04 09:05] VITALS: BP 109/47; BMI 30.9
[2018-08-04 16:30] VITALS: BP 133/49
[2018-08-04 19:21] VITALS: BP 152/68; Ht 162.6 cm; Wt 81.8 kg
[2018-08-04 20:00] VITALS: BP 120/45
[2018-08-05 04:00] VITALS: BP 123/46
[2018-08-05 04:54] LABS: HEMOGLOBIN 12.8 g/dL (12-16); MCH 30.5 pg (26.0-34.0); MCV 95.2 fL (80.0-100.0); MEAN PLATELET VOLUME 10.3 fL (7.4-10.4); RBC 4.2 10x6/uL (4.00-5.40); RDW 14.1 % (11.5-14.5); WBC 12.4 10x3/uL (4.8-10.8)
[2018-08-05] MEDS ORDERED: OXYCODONE-APAP1 TAB PO (08:15)
[2018-08-05 09:59] VITALS: BP 124/50
== END 2018-08-05 13:57 | disposition home health service (06) | DRG 483 ==
LOC: D.MS 08:00 → D.SDCHOLD 08:00 → D.MS 13:23
PROVIDERS: Anesthesiology; Orthopaedic Surgery
PROC: 0RRJ00Z Replacement of Right Shoulder Joint with Reverse Ball and Socket Synthetic Substitute, Open Approach (ICD-10-PCS; principal; 2018-08-04 10:00)
DX: M75.101 Unspecified rotator cuff tear or rupture of right shoulder, not specified as traumatic (principal)

== ENCOUNTER → 2019-09-04 13:36 | Outpatient (CLI) | payer MEDICARE ==
[2018-08-04 19:21] VITALS: BMI 30.9
[~2019-09-04 13:36] MED LIST changes: +OXYCODONE-APAP1 TAB PO
== END | disposition home or self-care (01) ==
LOC: D.RAD 13:36
PROVIDERS: ATTEND Family Medicine
DX: R05 Cough (principal)